=== PATIENT | male | born 1985 | race Caucasian/White ===

== ENCOUNTER 2023-02-03 21:41 | Emergency (ER) | payer SELFPAY ==
[2023-02-03 21:54] VITALS: RESP 16; BMI 27.3
[2023-02-03 22:08] VITALS: BP 126/75; PULSE 66; TEMP 98.7
[2023-02-04] MEDS ORDERED: IBUPROFEN 400 MG TABLET (FP) PO ONE ×2 (00:01→00:02)
== END 2023-02-04 00:24 | disposition home or self-care (01) ==
LOC: FER 21:41
DX: R07.81 Pleurodynia (principal); R09.1 Pleurisy; Z20.822 Contact with and (suspected) exposure to COVID-19
CPT/HCPCS: 0241U-QW; 71101-TC-LT-FY; 99284-25